=== PATIENT | male | born 1975 | race Caucasian/White ===

== ENCOUNTER 2016-09-04 05:11 | Outpatient (RCR) | payer OTHER ==
[~2016-09-04] VITALS: Ht 177.8 cm; Wt 69.4 kg
[2016-09-04] MEDS ORDERED: NS 550ML IV ONE (05:12)
[2016-09-04] MEDS ORDERED: Midazolam 2mg/2ml Inj ONE (05:12)
[2016-09-04] MEDS ORDERED: Succinylcholine 20mg/ml 10ml vial ONE (05:12)
[2016-09-04] MEDS ORDERED: Methohexital Sodium Syr 100mg/10ml IVP ONE (05:12)
[2016-09-04] MEDS ORDERED: Ketorolac 30mg Inj ONE ×2 (05:12)
== END 2016-09-19 | disposition home or self-care (01) ==
LOC: ECT 05:11
DX: F33.2 Major depressive disorder, recurrent severe without psychotic features (principal); F34.1 Dysthymic disorder
CPT/HCPCS: 90870; J0330; J1885; J2250; J7040

== ENCOUNTER 2016-10-02 05:50 | Outpatient (RCR) | payer OTHER ==
[~2016-10-02] VITALS: Ht 177.8 cm; Wt 69.4 kg
[2016-10-02] MEDS ORDERED: NS 550ML IV ONE (05:51)
[2016-10-02] MEDS ORDERED: Methohexital Sodium Syr 100mg/10ml IVP ONE (05:51)
[2016-10-02] MEDS ORDERED: Ketorolac 30mg Inj ONE (05:51)
[2016-10-02] MEDS ORDERED: Midazolam 2mg/2ml Inj ONE (05:51)
[2016-10-02] MEDS ORDERED: Succinylcholine 20mg/ml 10ml vial ONE (05:51)
[2016-10-02] MEDS ORDERED: Atropine Sulfate 0.4mg/ml inj IVP PRN (12:30)
[2016-10-09] MEDS ORDERED: Methohexital Sodium Syr 100mg/10ml IVP ONE (05:51)
[2016-10-09] MEDS ORDERED: Ketorolac 60mg Inj ONE (05:51)
[2016-10-09] MEDS ORDERED: Midazolam 2mg/2ml Inj ONE (05:51)
[2016-10-09] MEDS ORDERED: NS 550ML IV ONE (05:51)
[2016-10-09] MEDS ORDERED: Succinylcholine 20mg/ml 10ml vial ONE (05:51)
[2016-10-16] MEDS ORDERED: Succinylcholine 20mg/ml 10ml vial ONE (12:00)
[2016-10-16] MEDS ORDERED: Methohexital Sodium Syr 100mg/10ml IVP ONE (12:00)
[2016-10-16] MEDS ORDERED: NS 550ML IV ONE (12:00)
[2016-10-16] MEDS ORDERED: Ketorolac 30mg Inj ONE (12:00)
[2016-10-16] MEDS ORDERED: Midazolam 2mg/2ml Inj ONE (12:00)
== END 2016-10-17 | disposition home or self-care (01) ==
LOC: ECT 05:50
DX: F33.2 Major depressive disorder, recurrent severe without psychotic features (principal)
CPT/HCPCS: 90870; J0330; J1885; J2250; J7040

== ENCOUNTER 2016-10-25 08:36 | Outpatient (RCR) | payer OTHER ==
[~2016-10-25] VITALS: Ht 177.8 cm; Wt 69.4 kg
[2016-10-25] MEDS ORDERED: NS 550ML IV ONE (08:37)
[2016-10-25] MEDS ORDERED: Methohexital Sodium Syr 100mg/10ml IVP ONE (08:37)
[2016-10-25] MEDS ORDERED: Ketorolac 60mg Inj ONE (08:37)
[2016-10-25] MEDS ORDERED: Succinylcholine 20mg/ml 10ml vial ONE (08:37)
[2016-10-25] MEDS ORDERED: Midazolam 2mg/2ml Inj ONE (08:37)
[2016-10-25] MEDS ORDERED: Atropine Sulfate 0.4mg/ml inj IVP PRN (17:15)
[2016-11-08] MEDS ORDERED: Atropine Sulfate 0.4mg/ml inj IVP PRN (07:57)
[2016-11-08] MEDS ORDERED: Ketorolac 60mg Inj ONE (08:00)
[2016-11-08] MEDS ORDERED: Methohexital Sodium Syr 100mg/10ml IVP ONE (08:00)
[2016-11-08] MEDS ORDERED: Succinylcholine 20mg/ml 10ml vial ONE (08:00)
[2016-11-08] MEDS ORDERED: NS 550ML IV ONE (08:00)
[2016-11-08] MEDS ORDERED: Midazolam 2mg/2ml Inj ONE (08:00)
== END 2016-11-17 | disposition home or self-care (01) ==
LOC: ECT 08:36
DX: F33.2 Major depressive disorder, recurrent severe without psychotic features (principal)
CPT/HCPCS: 90870; J0330; J2250; J7040

== ENCOUNTER 2016-11-24 06:14 | Outpatient (RCR) | payer OTHER ==
[~2016-11-24] VITALS: Ht 30.5 cm; Wt 0.5 kg
[2016-11-24] MEDS ORDERED: Succinylcholine 20mg/ml 10ml vial ONE (06:15)
[2016-11-24] MEDS ORDERED: NS 550ML IV ONE (06:15)
[2016-11-24] MEDS ORDERED: Methohexital Sodium Syr 100mg/10ml IVP ONE (06:15)
[2016-11-24] MEDS ORDERED: Ketorolac 60mg Inj ONE (06:15)
[2016-11-24] MEDS ORDERED: Midazolam 2mg/2ml Inj ONE (06:15)
[2016-12-15] MEDS ORDERED: NS 550ML IV ONE (08:00)
[2016-12-15] MEDS ORDERED: Succinylcholine 20mg/ml 10ml vial ONE (08:00)
[2016-12-15] MEDS ORDERED: Methohexital Sodium Syr 100mg/10ml IVP ONE (08:00)
[2016-12-15] MEDS ORDERED: Midazolam 2mg/2ml Inj ONE (08:00)
[2016-12-15] MEDS ORDERED: Ketorolac 60mg Inj ONE (08:00)
== END 2016-12-17 | disposition home or self-care (01) ==
LOC: ECT 06:14
DX: F33.2 Major depressive disorder, recurrent severe without psychotic features (principal)
CPT/HCPCS: 90870; J0330; J2250; J7040

== ENCOUNTER 2017-01-12 04:44 | Outpatient (RCR) | payer OTHER ==
[~2017-01-12] VITALS: Ht 177.8 cm; Wt 69.4 kg
[2017-01-12] MEDS ORDERED: Midazolam 2mg/2ml Inj ONE (04:45)
[2017-01-12] MEDS ORDERED: NS 550ML IV ONE (04:45)
[2017-01-12] MEDS ORDERED: Ketorolac 60mg Inj ONE (04:45)
[2017-01-12] MEDS ORDERED: Succinylcholine 20mg/ml 10ml vial ONE (04:45)
[2017-01-12] MEDS ORDERED: Methohexital Sodium Syr 100mg/10ml IVP ONE (04:45)
== END 2017-01-17 | disposition home or self-care (01) ==
LOC: ECT 04:44
DX: F33.2 Major depressive disorder, recurrent severe without psychotic features (principal)
CPT/HCPCS: 90870; J0330; J2250; J7040

== ENCOUNTER 2017-02-12 05:58 | Outpatient (RCR) | payer OTHER ==
[~2017-02-12] VITALS: Ht 177.8 cm; Wt 69.4 kg
[2017-02-12] MEDS ORDERED: Ketorolac 60mg Inj ONE (05:59)
[2017-02-12] MEDS ORDERED: Midazolam 2mg/2ml Inj ONE (05:59)
[2017-02-12] MEDS ORDERED: NS 550ML IV ONE (05:59)
[2017-02-12] MEDS ORDERED: Methohexital Sodium Syr 100mg/10ml IVP ONE (05:59)
[2017-02-12] MEDS ORDERED: Succinylcholine 20mg/ml 10ml vial ONE (05:59)
== END 2017-02-16 | disposition home or self-care (01) ==
LOC: ECT 05:58
DX: F33.2 Major depressive disorder, recurrent severe without psychotic features (principal)
CPT/HCPCS: 90870; J0330; J2250; J7040

== ENCOUNTER 2017-03-12 05:11 | Outpatient (RCR) | payer OTHER ==
[~2017-03-12] VITALS: Ht 33 cm; Wt 0.5 kg
[2017-03-12] MEDS ORDERED: Methohexital Sodium Syr 100mg/10ml IVP ONE (05:12)
[2017-03-12] MEDS ORDERED: NS 550ML IV ONE (05:12)
[2017-03-12] MEDS ORDERED: Midazolam 2mg/2ml Inj ONE (05:12)
[2017-03-12] MEDS ORDERED: Ketorolac 60mg Inj ONE (05:12)
[2017-03-12] MEDS ORDERED: Succinylcholine 20mg/ml 10ml vial ONE (05:12)
== END 2017-03-19 | disposition home or self-care (01) ==
LOC: ECT 05:11
DX: F33.2 Major depressive disorder, recurrent severe without psychotic features (principal)
CPT/HCPCS: 90870; J0330; J2250; J7040

== ENCOUNTER 2017-04-09 06:57 | Outpatient (RCR) | payer OTHER | END 2017-04-19 | disposition home or self-care (01) | LOC: ECT 06:57 | DX: Z53.9 Procedure and treatment not carried out, unspecified reason (principal) ==